=== PATIENT | female | born 1950 | race Caucasian/White ===

== ENCOUNTER 2022-05-16 14:48 | Emergency (ER) | payer OTHER, SELFPAY ==
[2022-05-16] VITALS (18 sets, daily range): BP systolic 162–203; BP diastolic 75–89; PULSE 50–72; RESP 12–20; TEMP 36.9; O2SAT 88–99; BMI 29.7
[2022-05-16] MEDS: ONDANSETRON 4 MG/2 ML INJ IV (15:09)
[2022-05-16] MEDS: diazePAM 10 MG/2 ML SYRINGE 2 MG IV (15:20)
--- NOTE | 2022-05-16 15:29 | PC.NURSE ---
Pt reports hx of menieres disease with onset of dizziness about 3 hours ago. Pt denies chest pain or any other symptoms. Pt took meclazine at 1330 with no improvement. Pt has N&V. Provider aware. Verbal order of 2mg valium IV given by provider. Pt reporting improvement after administration.
--- NOTE | 2022-05-16 16:12 | PC.NURSE ---
Pt desat to 88% on RA. Repositioned pt. Placed by on 1 L NC. Oxygen saturation at 99% on 1L via NC.
--- NOTE | 2022-05-16 16:33 | DI.CT.S_ITS ---
PROCEDURE: CT HEAD/BRAIN WO CON INDICATIONS: dizziness TECHNIQUE: Noncontrast 4.5 mm thick angled axial sections acquired from the foramen magnum to the vertex, with coronal and sagittal reformats. For radiation dose reduction, the following was used: automated exposure control, adjustment of mA and/or kV according to patient size. COMPARISON: None. FINDINGS: Image quality: Excellent. CSF spaces: Basal cisterns are patent. No extra-axial fluid collections. The ventricles are symmetric in size and shape. Brain: No intracranial bleeds or masses. There is cerebral volume loss for age, with resultant ventricular and sulcal prominence. There are periventricular and deep white matter chronic small vessel ischemic changes. There is intracranial internal carotid artery atherosclerosis. Skull and face: Calvarium and visualized facial bones appear intact, without suspicious lesions. Sinuses: Visualized sinuses and mastoids are clear. IMPRESSION: Noncontrast head CT within normal limits for age, without a cause of the patient's presenting history identified. If it would be helpful for clinical management decision making, please consider a dedicated, scheduled brain MRI (without and with contrast, IAC protocol) for further evaluation (assuming that there is no contraindication). Dictated by: Luis Enrique Loya M.D. on 05/16/2022 at 16:22 Approved by: Luis Enrique Loya M.D. on 05/16/2022 at 16:23
--- NOTE | 2022-05-16 16:37 | ED_ITS ---
HPI - Dizziness General Chief Complaint: Dizziness Stated Complaint: have M?ni?re's having a episode Time Seen by Provider: 05/16/22 15:00 History of Present Illness HPI Narrative: 71-year-old female nonsmoker, nondrinker with history of Meniere's and a prior Jason fundoplication presents with gradually worsening dizziness and vertigo over the course of the day. She states that she woke up in her normal state of health and earlier today maybe felt some vague dizziness that gradually worsened and became quite severe. She states that her symptoms are very similar to prior episodes of vertigo that was diagnosed as by ENT in [place] in that her symptoms are worse when she moves, sits up or opens her eyes. She states that bright lights seem to also worsen her symptoms. Over the past month or so she is had decreased ability to hear from her left ear. She denies fever or chills. She is had no runny nose, sore throat or cough. She denies any chest pain or shortness of breath. She states that she had taken meclizine prior to her arrival which often helps but did not seem to do anything today. Otherwise, she denies any dietary change but was relatively recently started on lisinopril. Related Data Home Medications Medication Instructions Recorded Confirmed levothyroxine 13 mcg capsule Unknown ##0 04/14/17 (Tirosint) lisdexamfetamine 10 mg capsule ##0 04/14/17 (Vyvanse) Previous Rx's Medication Instructions Recorded metoclopramide HCl 10 mg tablet 10 mg PO Q8HP PRN #15 tabs 04/14/17 meclizine 25 mg tablet 25 mg PO BID-TID PRN dizziness #14 05/16/22 tabs ondansetron 4 mg disintegrating 4 mg PO TID-QID PRN nausea and 05/16/22 tablet vomiting #10 tabs Allergies Allergy/AdvReac Type Severity Reaction Status Date / Time Estrogens [ESTROGENS] Allergy Severe Rash Verified 05/16/22 18:41 ciprofloxacin [From CIPRO] Allergy Intermediate Verified 05/16/22 18:41 olmesartan [From Benicar] Allergy Intermediate Verified 05/16/22 18:41 losartan AdvReac Intermediate Verified 05/16/22 18:41 NSAIDS (Non-Steroidal AdvReac Intermediate Verified 05/16/22 18:41 Anti-Inflamma tramadol [From Ultram] AdvReac Intermediate Verified 05/16/22 18:41 Review of Systems Review of Systems Narrative: GENERAL: Denies chills, fatigue, malaise, fever, sweats. HEENT: See HPI RESPIRATORY: Denies dyspnea, cough, wheezing, hemoptysis, sputum. CARDIOVASCULAR: Denies chest pain, palpitations, orthopnea, edema, GASTROINTESTINAL: See HPI : Denies dysuria, frequency, incontinence, hematuria, urinary retention. MUSCULOSKELETAL: denies weakness, joint pain, or bony pain SKIN: Denies rash, skin lesions, or other NEUROLOGIC: Denies weakness, headache, numbness, change in speech, confusion, seizures, incoordination. PSYCHIATRIC: No concerning psychosocial issues. 12 point review of systems is negative except for those stated above Exam Narrative Exam Narrative: GENERAL: [71] year old patient appears stated age. Well-developed patient, in mild distress. HEAD: Atraumatic. Normocephalic. EYES: Pupils equal round and reactive. Extraocular motions intact. No scleral icterus. No injection or drainage. ENT: Moist mucous membranes Nose without bleeding, purulent drainage. Throat without erythema, tonsillar hypertrophy or exudate. Airway patent. No obvious reproducible nystagmus, however any motion of her head rapidly worsened symptoms NECK: Trachea midline. Non tender CARDIOVASCULAR: Regular rate and rhythm without murmurs, gallops, or rubs. RESPIRATORY: Clear to auscultation. Breath sounds equal bilaterally. No wheezes, rales, or rhonchi. GASTROINTESTINAL: Abdomen soft, non-tender, nondistended. EXTREMITIES: No edema or joint tenderness. BACK: Nontender without deformity or crepitance. No flank tenderness. NEURO: AOx3. SKIN: No rash or erythema of visible areas NIH Stroke Scale 1a. LOC: Patient is alert and keenly responsive (0) 1b. LOC Questions: Patient answers both LOC questions accurately (0) 1c. LOC Commands: Patient performs both tasks correctly (0) 2. Best Gaze: Normal (0) 3. Visual: No visual loss (0) 4. Facial palsy: Normal symmetrical movements (0) 5. Motor arm: No drift (0) 6. Motor leg: No drift (0) 7. Limb ataxia: Absent (0) 8. Sensory: Normal (0) 9. Best language: No aphasia; normal (0) 10. Dysarthria: Normal (0) 11. Extinction and inattention: No abnormality (0) NIHSS: 0 Initial Vital Signs Initial Vital Signs: Vital Signs Pulse Rate 65 05/16/22 15:01 Pulse Oximetry 99 05/16/22 15:01 Course Orders Ordered: Discontinued Medications Diazepam (Diazepam 10 Mg/2 Ml Syringe) 2 mg IV NOW ONE Stop: 05/16/22 15:15 Last Admin: 05/16/22 15:20 Dose: 2 mg Documented By: FRANKIE Diphenhydramine HCl (Diphenhydramine 50 Mg/Ml Vial) 12.5 mg IV NOW ONE Stop: 05/16/22 17:43 Last Admin: 05/16/22 17:53 Dose: 12.5 mg Documented By: FRANKIE Sodium Chloride (Normal Saline 0.9%) 1,000 mls @ 1,000 mls/hr IV BOLUS ONE Stop: 05/16/22 17:32 Last Infusion: 05/16/22 17:52 Dose: 0 mls/hr Documented By: Admin: 05/16/22 16:42 Dose: 1,000 mls/hr Documented By: FRANKIE Ondansetron HCl (Ondansetron 4 Mg/2 Ml Inj) 4 mg IV NOW ONE Stop: 05/16/22 15:07 Last Admin: 05/16/22 15:09 Dose: 4 mg Documented By: GABRIELLA Ondansetron HCl (Ondansetron 4 Mg Odt Prepack) 1 bottle MISC SEEINSTR ONE Stop: 05/16/22 19:12 Last Admin: 05/16/22 19:32 Dose: 1 bottle Documented By: FRANKIE Vital Signs Vital signs: Vital Signs - 8 hr 05/16/22 15:02 05/16/22 15:01 05/16/22 15:02 Temperature 98.5 F Pulse Rate 65 65 Respiratory Rate 16 Blood Pressure 190/89 H 190/89 H Pulse Oximetry 98 99 Oxygen Delivery Method Room Air Oxygen Flow Rate 05/16/22 15:02 05/16/22 15:27 05/16/22 15:27 Temperature Pulse Rate 62 56 L Respiratory Rate 14 Blood Pressure 189/87 H Pulse Oximetry 99 99 Oxygen Delivery Method Oxygen Flow Rate 05/16/22 15:30 05/16/22 15:31 05/16/22 15:31 Temperature Pulse Rate 55 L 53 L Respiratory Rate 13 Blood Pressure 180/79 H Pulse Oximetry 96 95 Oxygen Delivery Method Oxygen Flow Rate 05/16/22 16:00 05/16/22 16:01 05/16/22 16:01 Temperature Pulse Rate 51 L 51 L Respiratory Rate 18 14 Blood Pressure 168/81 H Pulse Oximetry 95 88 L 99 Oxygen Delivery Method Room Air Nasal Cannula Oxygen Flow Rate 1 MDM - Dizziness Lab Data Result diagrams: 05/16/22 15:08 05/16/22 15:08 Labs: Lab Results 05/16/22 05/16/22 05/16/22 Range/Units 15:08 15:08 15:08 WBC 10.2 (4.5-11.0) X10^3/uL RBC 4.85 (4.0-5.2) X10^6/uL Hgb 14.0 (12.0-16.0) g/dL Hct 41.8 (36-46) % MCV 86.1 (80-100) fL MCH 28.9 (26-34) PG MCHC 33.5 (30-36) % RDW 14.3 (11.6-14.8) % Plt Count 252 (150-400) X10^3/uL Neut % (Auto) 54.6 (50-75) % Lymph % (Auto) 35.7 (25-40) % [place] % (Auto) 7.5 (3-14) % Eos % (Auto) 1.6 L (2-4) % Baso % (Auto) 0.6 (0-2) % Neut # (Auto) 5600 (4197-0405) /uL Lymph # (Auto) 3600 (2033-8627) /uL [place] # (Auto) 800 (0-900) /uL Eos # (Auto) 200 (0-450) /uL Baso # (Auto) 100 (0-100) /uL PT 11.6 (10.1-12.7) SECONDS INR 1.0 (0.9-1.3) APTT 28 (26-36) SECONDS Sodium 140 (137-145) mmol/L Potassium 3.4 (3.4-5.1) mmol/L Chloride 106 (98-107) mmol/L Carbon Dioxide 24 (22-32) mmol/L BUN 15 (7-17) mg/dL Creatinine 0.72 (0.52-1.04) mg/dL Estimated GFR > 60 (>60) mL/min BUN/Creatinine Ratio 20.8 (6-22) Glucose 112 H (80-110) mg/dL Calcium 9.1 (8.4-10.2) mg/dL Total Bilirubin 0.7 (0.2-1.3) mg/dL AST 30 (14-36) IU/L ALT 21 (<35) IU/L Alkaline Phosphatase 96 (38-126) U/L Total Creatine Kinase 112 (30-135) U/L CK-MB (CK-2) 1.16 (<2.37) ng/mL CK-MB (CK-2) Rel Index 1.0 L (1.5-5.0) % Troponin I < 0.012 (0.01-0.034) ng/mL Total Protein 7.2 (6.3-8.2) g/dL Albumin 4.1 (3.5-5.0) g/dL Globulin 3.1 (1.7-4.1) g/dL Albumin/Globulin Ratio 1.3 (1.0-2.8) TSH (0.47-4.68) uIU/mL Urine Color Urine Appearance Urine pH (4.5-8.0) Ur Specific [place] (1.000-1.035) Urine Protein (Negative) Urine Glucose (UA) (Negative) g/dL Urine Ketones (NEGATIVE) Urine Occult Blood (Negative) Urine Nitrate (Negative) Urine Bilirubin (NEGATIVE) Urine Urobilinogen (0.2) E.U./dL Ur Leukocyte Esterase (NEGATIVE) Urine RBC (0-5/HPF) Urine WBC (0-5/HPF) Ur Squamous Epith Cells (0-5/HPF) Amorphous Sediment Urine Bacteria (None) Ur Culture Indicated? U Opiates 300ng/mL cut (Negative) Ur Oxycodone Screen (Negative) Urine Methadone Screen (Negative) Ur Barbiturates Screen (Negative) U Tricyclic Antidepress (Negative) Ur Phencyclidine Scrn (Negative) Ur Amphetamines Screen (Negative) U Methamphetamines Scrn (Negative) Ur MDMA Scrn (Ecstasy) (Negative) U Benzodiazepines Scrn (Negative) Urine Cocaine Screen (Negative) U Marijuana (THC) Screen (Negative) Ethyl Alcohol < 10 ( - 10) mg/dL SARS-CoV-2 (PCR) (Negative) 05/16/22 05/16/22 05/16/22 Range/Units 15:08 17:15 19:00 WBC (4.5-11.0) X10^3/uL RBC (4.0-5.2) X10^6/uL Hgb (12.0-16.0) g/dL Hct (36-46) % MCV (80-100) fL MCH (26-34) PG MCHC (30-36) % RDW (11.6-14.8) % Plt Count (150-400) X10^3/uL Neut % (Auto) (50-75) % Lymph % (Auto) (25-40) % [place] % (Auto) (3-14) % Eos % (Auto) (2-4) % Baso % (Auto) (0-2) % Neut # (Auto) (2455-0576) /uL Lymph # (Auto) (4301-6771) /uL [place] # (Auto) (0-900) /uL Eos # (Auto) (0-450) /uL Baso # (Auto) (0-100) /uL PT (10.1-12.7) SECONDS INR (0.9-1.3) APTT (26-36) SECONDS Sodium (137-145) mmol/L Potassium (3.4-5.1) mmol/L Chloride (98-107) mmol/L Carbon Dioxide (22-32) mmol/L BUN (7-17) mg/dL Creatinine (0.52-1.04) mg/dL Estimated GFR (>60) mL/min BUN/Creatinine Ratio (6-22) Glucose (80-110) mg/dL Calcium (8.4-10.2) mg/dL Total Bilirubin (0.2-1.3) mg/dL AST (14-36) IU/L ALT (<35) IU/L Alkaline Phosphatase (38-126) U/L Total Creatine Kinase (30-135) U/L CK-MB (CK-2) (<2.37) ng/mL CK-MB (CK-2) Rel Index (1.5-5.0) % Troponin I (0.01-0.034) ng/mL Total Protein (6.3-8.2) g/dL Albumin (3.5-5.0) g/dL Globulin (1.7-4.1) g/dL Albumin/Globulin Ratio (1.0-2.8) TSH 2.54 (0.47-4.68) uIU/mL Urine Color Urine Appearance Urine pH (4.5-8.0) Ur Specific [place] (1.000-1.035) Urine Protein (Negative) Urine Glucose (UA) (Negative) g/dL Urine Ketones (NEGATIVE) Urine Occult Blood (Negative) Urine Nitrate (Negative) Urine Bilirubin (NEGATIVE) Urine Urobilinogen (0.2) E.U./dL Ur Leukocyte Esterase (NEGATIVE) Urine RBC (0-5/HPF) Urine WBC (0-5/HPF) Ur Squamous Epith Cells (0-5/HPF) Amorphous Sediment Urine Bacteria (None) Ur Culture Indicated? U Opiates 300ng/mL cut Negative (Negative) Ur Oxycodone Screen Negative (Negative) Urine Methadone Screen Negative (Negative) Ur Barbiturates Screen Negative (Negative) U Tricyclic Antidepress Negative (Negative) Ur Phencyclidine Scrn Negative (Negative) Ur Amphetamines Screen Negative (Negative) U Methamphetamines Scrn Negative (Negative) Ur MDMA Scrn (Ecstasy) Negative (Negative) U Benzodiazepines Scrn Negative (Negative) Urine Cocaine Screen Negative (Negative) U Marijuana (THC) Screen Negative (Negative) Ethyl Alcohol ( - 10) mg/dL SARS-CoV-2 (PCR) Negative (Negative) 05/16/22 Range/Units 19:00 WBC (4.5-11.0) X10^3/uL RBC (4.0-5.2) X10^6/uL Hgb (12.0-16.0) g/dL Hct (36-46) % MCV (80-100) fL MCH (26-34) PG MCHC (30-36) % RDW (11.6-14.8) % Plt Count (150-400) X10^3/uL Neut % (Auto) (50-75) % Lymph % (Auto) (25-40) % [place] % (Auto) (3-14) % Eos % (Auto) (2-4) % Baso % (Auto) (0-2) % Neut # (Auto) (9912-5219) /uL Lymph # (Auto) (8693-3791) /uL [place] # (Auto) (0-900) /uL Eos # (Auto) (0-450) /uL Baso # (Auto) (0-100) /uL PT (10.1-12.7) SECONDS INR (0.9-1.3) APTT (26-36) SECONDS Sodium (137-145) mmol/L Potassium (3.4-5.1) mmol/L Chloride (98-107) mmol/L Carbon Dioxide (22-32) mmol/L BUN (7-17) mg/dL Creatinine (0.52-1.04) mg/dL Estimated GFR (>60) mL/min BUN/Creatinine Ratio (6-22) Glucose (80-110) mg/dL Calcium (8.4-10.2) mg/dL Total Bilirubin (0.2-1.3) mg/dL AST (14-36) IU/L ALT (<35) IU/L Alkaline Phosphatase (38-126) U/L Total Creatine Kinase (30-135) U/L CK-MB (CK-2) (<2.37) ng/mL CK-MB (CK-2) Rel Index (1.5-5.0) % Troponin I (0.01-0.034) ng/mL Total Protein (6.3-8.2) g/dL Albumin (3.5-5.0) g/dL Globulin (1.7-4.1) g/dL Albumin/Globulin Ratio (1.0-2.8) TSH (0.47-4.68) uIU/mL Urine Color Yellow Urine Appearance Clear Urine pH 7.5 (4.5-8.0) Ur Specific [place] 1.010 (1.000-1.035) Urine Protein Negative (Negative) Urine Glucose (UA) Negative (Negative) g/dL Urine Ketones Trace H (NEGATIVE) Urine Occult Blood Negative (Negative) Urine Nitrate Negative (Negative) Urine Bilirubin Negative (NEGATIVE) Urine Urobilinogen 0.2 (0.2) E.U./dL Ur Leukocyte Esterase Trace H (NEGATIVE) Urine RBC None seen (0-5/HPF) Urine WBC 1-5/hpf (0-5/HPF) Ur Squamous Epith Cells 1-5 /hpf (0-5/HPF) Amorphous Sediment 1+ Urine Bacteria Occasional (0-1) (None) Ur Culture Indicated? Specimen cultured U Opiates 300ng/mL cut (Negative) Ur Oxycodone Screen (Negative) Urine Methadone Screen (Negative) Ur Barbiturates Screen (Negative) U Tricyclic Antidepress (Negative) Ur Phencyclidine Scrn (Negative) Ur Amphetamines Screen (Negative) U Methamphetamines Scrn (Negative) Ur MDMA Scrn (Ecstasy) (Negative) U Benzodiazepines Scrn (Negative) Urine Cocaine Screen (Negative) U Marijuana (THC) Screen (Negative) Ethyl Alcohol ( - 10) mg/dL SARS-CoV-2 (PCR) (Negative) Point of Care Testing Glucose POC 112 Urine Dip Bedside Urine Glucose Negative Bedside Urine Bilirubin - Negative Bedside Urine Ketone - Negative Urine Specific [place] 1.010 Bedside Urine Occult Blood - Negative Bedside Urine pH 7.5 Bedside Urine Protein - Negative Bedside Urine Urobilinogen - Negative Bedside Urine Nitrite - Negative Bedside Urine Leukocytes - Negative Esterase Imaging Data CT scan - head: Radiologist's Impression: [address] [id number] ReportSigned Patient: Aldair Wei MMR#: [id number]: 9Acct:[id number]/Sex: 64 / MDate of Service: 05/17/22Loc: EDAccession Number: [id number] Procedure: XR chest 1V Ordering Provider: Shaw Reynoso D.O. PROCEDURE: XR CHEST 1V INDICATIONS: chest pain TECHNIQUE: One view of the chest was acquired. COMPARISON: [facility] , XR CHEST 1V, 05/04/2018, 18:54. FINDINGS: Surgical changes and devices: None. Lungs and pleura: Lungs are clear. No pleural effusions or pneumothorax. Mediastinum: Mediastinal contours appear normal. Heart size is mildly enlarged. Bones and chest wall: No suspicious bony lesions. Overlying soft tissues a ppear unremarkable. IMPRESSION: No acute pulmonary process. Dictated by: Dariela Singh M.D. on 05/17/2022 at 23:51 Approved by: Dariela Singh M.D. on 05/17/2022 at 23:51 CTA - brain/neck: Radiologist's Impression: ? Chart Viewer Diagnostics Subcategory All Activity ??:?? All Time ??:?? All Subcategories Filter Laboratory Imaging Microbiology Pathology Blood Bank Tests Cardiovascular Other Specialty DATE TYPE STATUS REF RANGE/AUTHOR Hx 05/16/22 17:42 Head/Neck CTA Signed Derik Llanos 05/16/22 16:[address] Signed Luis Enrique Loya Lisa L ED 71, F?1950 MRN#? [id number] DEP ER,?Main ED??? 170.18cm 86.183kg BMI: 29.8kg/m? Dizziness Acc#? [id number] Resus Status Not Ordered No Hx Avail Special Indicators No Data to Display Home Meds Not Confirmed Prescription Monitoring Program MEDICATIONS (INSTRUCTIONS) LAST TAKEN Active ??levothyroxine [Tirosint] ??Unknown##0 ??lisdexamfetamine [Vyvanse] ??##0 meclizine 25 mgPOBID-TIDPRNdizziness#14 tabs ??metoclopramide HCl ??10 [id number]#15 tabs ondansetron 4 mgPOTID-QIDPRNnausea and vomiting#10 tabs Allergies Estrogens (ESTROGENS) Rash ciprofloxacin (From CIPRO) olmesartan (From Benicar) losartan NSAIDS (Non-Steroidal Anti-Inflamma tramadol (From Ultram) Problems ? ONSET Peripheral vertigo Abdominal pain Vital Signs 05/16/22 19:08 BP 162/75?H Pulse 66? Resp 20? O2 Sat 97? Diagnostics Reports Amada Montenegro??71??F??1950 ? Allergy/Adv: Estrogens, ciprofloxacin, olmesartan, losartan, NSAIDS (Non-St eroidal Anti-Inflamma, tramadol (More??) Close Head/Neck CTA (Signed) Derik Llanos - 05/16/[address] (Signed) Luis Enrique Loya - 05/16/22 [place] [address] CT Scan Report Signed Patient: Amada Montenegro MR#: [id number] : 1950 Acct:[id number] Age/Sex: 71 / F Date of Service: 05/16/22 Loc: ED Accession Number: [id number] ?? Procedure: CT angio head and neck Ordering Provider: Shaw Reynoso D.O. PROCEDURE:? CT ANGIO HEAD AND NECK ? INDICATIONS:? severe dizziness, ataxia ? TECHNIQUE:? Pre-contrast 4.5 mm thick sections acquired from the foramen magnum to the vertex.? After the administration of intravenous contrast, 1 mm thick sections acquired from the aortic arch through the [place] of [place].? Post-contrast 4.5 mm thick sections then re- acquired from the foramen magnum to the vertex.? 3-dimensional ojvtipl-flyyidjrj-hevwtxacpk (MIP) and/or volume rendering reformats were acquired of the central intracranial vasculature and neck separately. For radiation dose reduction, the following was used:? automated exposure control, adjustment of mA and/or kV according to patient size.? ? COMPARISON:? None. ? FINDINGS:? Image quality:? Excellent.? ? BRAIN:? CSF spaces:? Ventricles are normal in size and shape.? Basal cisterns are patent.? No extra-axial fluid collections.? ? Brain:? No midline shift.? No intracranial bleeds or masses.? Murry-white matter interface appears intact.? ? Skull and face:? Calvarium and facial bones appear intact, without suspicious lesions.? Orbits appear normal.? ? Sinuses:? Sinuses and mastoids are clear.? ? HEAD CT ANGIOGRAPHY:? Anterior circulation:? Intracranial internal carotid arteries are normal in size and flow.? The flow within the paired anterior cerebral arteries is normal and symmetric.? The flow within the middle cerebral arteries is normal and symmetric.? The anterior communicating artery is seen.? No aneurysms are seen.? ? Posterior circulation:? Visualized portions of the vertebral arteries demonstrate normal caliber, and join to form a normal appearing basilar artery.? Flow within the posterior cerebral arteries is normal and symmetric.? No aneurysms are seen.? ? NECK CT ANGIOGRAPHY:? Carotid system:? The great vessels demonstrate a conventional anatomy as they arise from the aortic arch.? The origins of the common carotid arteries appear patent.? The common carotid arteries demonstrate normal caliber and courses.? The bifurcation regions are both widely patent.? The internal carotid arteries demonstrate normal calibers and courses.? ? Posterior circulation:? The origins of the vertebral arteries both appear widely patent.? The more superior extracranial portions of both vertebral arteries also demonstrate normal courses and calibers.? They join to form a normal appearing basilar artery.? ? Soft tissues:? Visualized neck soft tissues demonstrate no suspicious abnormalities.? ? Bones:? No suspicious bony lesions.? Visualized cervical spine appears normally aligned.? IMPRESSION:? ? 1. No evidence acute intracranial abnormality ? 2. Unremarkable CTA head.? No stenosis, aneurysm, occlusion, or focal filling defect. ? 3. Widely patent carotids.? No carotid dissection or vertebral artery dissection.? Widely patent vertebral arteries and basilar artery.? ? Any quantitative measurements of stenosis were performed using NASCET criteria.? ? ? Dictated by: Derik Llanos M.D. on 05/16/2022 at 18:43 ? ? Approved by: Derik Llanos M.D. on 05/16/2022 at 18:47? MDM Narrative Medical decision making narrative: [71-year-old female with history of vertigo that tends to be triggered by caffeine presents with her in the chief complaint of dizziness] Multiple etiologies for patient's symptoms considered including, but not limited to: [Peripheral vertigo such as BPPV or Meniere's Disease, electrolyte abnormality, cardiac ischemia, stroke versus other] Labs reviewed and interpreted by myself: No anemia, electrolyte disturbance, abnormal troponin or other significant abnormality Imaging reviewed: CT and CTA of the head and neck are unremarkable and absent of any obvious stroke, bleeding, dissection or other Patient's symptoms improved over duration of stay with above-stated therapies. Patient able to ambulate through the department, tolerate liquids Findings and discharge diagnosis discussed with patient/family followed by verbalization of understanding Return precautions discussed with patient/family whom verbalize understanding of diagnosis and plan Discharge Plan Departure Patient Disposition: Home Clinical Impression: Peripheral vertigo Instructions: DI for Vertigo Activity Restrictions/Additional Instructions: *You have been diagnosed with [vertigo. As we discussed your history and physical exam as well as response to therapies are reassuring. Your labs and imaging demonstrate no evidence of stroke, bleeding, mass or other significant abnormal finding] *What to do: *Please continue to take your regular medications as directed. [ ] New medication prescriptions sent to your pharmacy: [ ] [ x] New medication written as a paper prescription [ ] No new medications given *Please follow up with your primary care provider in 2-3 days, call for an appointment. Let them know you were seen in the Emergency Department and that we ask that you be seen in follow up. We will electronically transmit a record of today's note if your PCP is in our system *Return to Emergency Department if you should have any new, worsening or concerning symptoms, such as [fever greater than 101 F, shaking chills, worsening pain, persistent vomiting or other bothersome symptoms] Prescriptions: New meclizine 25 mg tablet 25 mg PO BID-TID PRN (Reason: dizziness) Qty: 14 0RF ondansetron 4 mg tablet,disintegrating 4 mg PO TID-QID PRN (Reason: nausea and vomiting) Qty: 10 0RF No Action levothyroxine [Tirosint] 13 MCG capsule Unknown Qty: 0 lisdexamfetamine [Vyvanse] 10 mg capsule Qty: 0 metoclopramide HCl 10 MG tablet 10 mg PO Q8HP PRNQty: 15 0RF Referrals: Miscellaneous,Doctor, MD [Primary Care Provider] - Visit Report Forms: Patient Portal/API
[2022-05-16] MEDS: SODIUM CHLORIDE 0.9% 1,000 ML 1000 ML IV (16:42)
[2022-05-16 17:03] LABS: Add Manual Diff / Slide Review NO; Basophils Absolute Auto 100 /uL (0-100); Basophils Percent Auto 0.6 % (0-2); Eosinophils Absolute Auto 200 /uL (0-450); Eosinophils Percent Auto 1.6 % (2-4); Hematocrit 41.8 % (36-46); Lymphocytes Absolute Auto 3600 /uL (1100-4500); Lymphocytes Percent Auto 35.7 % (25-40); Mean Corpuscular HGB Conc 33.5 % (30-36); Mean Corpuscular Hemoglobin 28.9 PG (26-34); Mean Corpuscular Volume 86.1 fL (80-100); Monocytes Absolute Auto 800 /uL (0-900); Monocytes Percent Auto 7.5 % (3-14); Neutrophils Absolute Auto 5600 /uL (1500-7000); Neutrophils Percent Auto 54.6 % (50-75); Platelet Count 252 X10^3/uL (150-400); Red Blood Cell Count 4.85 X10^6/uL (4.0-5.2); Red Cell Distribution Width 14.3 % (11.6-14.8); White Blood Cell Count 10.2 X10^3/uL (4.5-11.0)
[2022-05-16 17:05] LABS: Prothrombin Time 11.6 SECONDS (10.1-12.7)
[2022-05-16 17:08] LABS: PTT Partial Thromboplastin Tim 28 SECONDS (26-36)
[2022-05-16 17:12] LABS: Alanine Aminotransferase 21 IU/L (<35); Albumin 4.1 g/dL (3.5-5.0); Albumin Globulin Ratio 1.3 (1.0-2.8); Alkaline Phosphatase 96 U/L (38-126); Aspartate Aminotransferase 30 IU/L (14-36); BUN Creatinine Ratio 20.8 (6-22); Bilirubin Total 0.7 mg/dL (0.2-1.3); Blood Urea Nitrogen 15 mg/dL (7-17); Calcium 9.1 mg/dL (8.4-10.2); Carbon Dioxide 24 mmol/L (22-32); Chloride 106 mmol/L (98-107); Creatine Kinase 112 U/L (30-135); Estimated Glomerular Filt Rate > 60 mL/min (>60); Ethanol (ETOH) < 10 mg/dL; Globulin 3.1 g/dL (1.7-4.1); Glucose 112 mg/dL (80-110); HEMOLYSIS < 15 (0-50); Potassium 3.4 mmol/L (3.4-5.1); Sodium 140 mmol/L (137-145); Total Protein 7.2 g/dL (6.3-8.2)
[2022-05-16 17:23] LABS: Troponin I < 0.012 ng/mL (0.01-0.034)
[2022-05-16 17:27] LABS: Creatine Kinase MB 1.16 ng/mL (<2.37)
[2022-05-16 17:42] LABS: TSH w/ Reflex to FT4 2.54 uIU/mL (0.47-4.68)
--- NOTE | 2022-05-16 17:42 | DI.CT.S_ITS ---
PROCEDURE: CT ANGIO HEAD AND NECK INDICATIONS: severe dizziness, ataxia TECHNIQUE: Pre-contrast 4.5 mm thick sections acquired from the foramen magnum to the vertex. After the administration of intravenous contrast, 1 mm thick sections acquired from the aortic arch through the [place]. Post-contrast 4.5 mm thick sections then re-acquired from the foramen magnum to the vertex. 3-dimensional clwqwzp-lkrwiwpik-hsqwhcgjxc (MIP) and/or volume rendering reformats were acquired of the central intracranial vasculature and neck separately. For radiation dose reduction, the following was used: automated exposure control, adjustment of mA and/or kV according to patient size. COMPARISON: None. FINDINGS: Image quality: Excellent. BRAIN: CSF spaces: Ventricles are normal in size and shape. Basal cisterns are patent. No extra-axial fluid collections. Brain: No midline shift. No intracranial bleeds or masses. Murry-white matter interface appears intact. Skull and face: Calvarium and facial bones appear intact, without suspicious lesions. Orbits appear normal. Sinuses: Sinuses and mastoids are clear. HEAD CT ANGIOGRAPHY: Anterior circulation: Intracranial internal carotid arteries are normal in size and flow. The flow within the paired anterior cerebral arteries is normal and symmetric. The flow within the middle cerebral arteries is normal and symmetric. The anterior communicating artery is seen. No aneurysms are seen. Posterior circulation: Visualized portions of the vertebral arteries demonstrate normal caliber, and join to form a normal appearing basilar artery. Flow within the posterior cerebral arteries is normal and symmetric. No aneurysms are seen. NECK CT ANGIOGRAPHY: Carotid system: The great vessels demonstrate a conventional anatomy as they arise from the aortic arch. The origins of the common carotid arteries appear patent. The common carotid arteries demonstrate normal caliber and courses. The bifurcation regions are both widely patent. The internal carotid arteries demonstrate normal calibers and courses. Posterior circulation: The origins of the vertebral arteries both appear widely patent. The more superior extracranial portions of both vertebral arteries also demonstrate normal courses and calibers. They join to form a normal appearing basilar artery. Soft tissues: Visualized neck soft tissues demonstrate no suspicious abnormalities. Bones: No suspicious bony lesions. Visualized cervical spine appears normally aligned. IMPRESSION: 1. No evidence acute intracranial abnormality 2. Unremarkable CTA head. No stenosis, aneurysm, occlusion, or focal filling defect. 3. Widely patent carotids. No carotid dissection or vertebral artery dissection. Widely patent vertebral arteries and basilar artery. Any quantitative measurements of stenosis were performed using NASCET criteria. Dictated by: Derik Llanos M.D. on 05/16/2022 at 18:43 Approved by: Derik Llanos M.D. on 05/16/2022 at 18:47
[2022-05-16] MEDS: diphenhydrAMINE 50 MG/ML VIAL 12.5 MG IV (17:53)
[2022-05-16 18:02] LABS: COVID19 -Nasal RAPID Negative (Negative)
--- NOTE | 2022-05-16 19:12 | PC.NURSE ---
Pt ambulated per provider request. Pt walked up and down ER hallways. Pt reports doing so much better and mild dizziness. Pt is steady on feet. Provider aware.
[2022-05-16 19:19] LABS: Appearance Urine UA CLEAR; Bilirubin Urine UA NEGATIVE (NEGATIVE); Color Urine UA YELLOW; Glucose Urine UA NEGATIVE (Negative); Ketones Urine UA TRACE (NEGATIVE); Leukocyte Esterase Urine UA TRACE (NEGATIVE); Nitrite Urine UA NEGATIVE (Negative); Occult Blood Urine UA NEGATIVE (Negative); Protein Urine UA NEGATIVE (Negative); Urobilinogen Urine UA 0.2 E.U./dL (0.2)
[2022-05-16 19:26] LABS: Amorphous Sediment Urine 1+; Bacteria Urine Occasional (0-1); Culture Indicated Urine Specimen Cultured; RBC Urine None Seen (0-5/HPF); Squamous Epithelial Cell Urine 1-5 /HPF (0-5/HPF); WBC Urine 1-5/HPF (0-5/HPF); pH Urine UA 7.5 (4.5-8.0)
[2022-05-16 19:28] LABS: UR Morphine/Opiate cutoff 300 Negative (Negative); Ur Creatinine Normal (Normal); Ur Specific Gravity Normal (Normal); Urine Amphetamines Negative (Negative); Urine Barbiturates Negative (Negative); Urine Benzodiazepines Negative (Negative); Urine Cocaine Negative (Negative); Urine MDMA Negative (Negative); Urine Methadone Negative (Negative); Urine Methamphetamines Negative (Negative); Urine Oxycodone Negative (Negative); Urine Phencyclidine Negative (Negative); Urine Tetrahydrocannabinol Negative (Negative); Urine Tricyclic Antidepressant Negative (Negative); Urine pH Normal (Normal)
[2022-05-16] MEDS: ONDANSETRON 4 MG ODT PREPACK 1 BOTTLE MISC (19:32)
== END 2022-05-16 19:35 | disposition home or self-care (01) ==
PROVIDERS: Emergency Provider Emergency Medicine
DX: H81.399 Other peripheral vertigo, unspecified ear (principal); Z20.822 Contact with and (suspected) exposure to COVID-19
CPT/HCPCS: 36415; 70450; 70496; 70498; 80053; 80305; 80320; 81001; 81003; 82550; 82553; 82962; 84443; 84484; 85025; 85610; 85730; 87086; 87635; 93005; 96361; 96374; 96375; 99284; 99285; C9803; J1200; J2405; J3360; Q9967

== ENCOUNTER 2023-11-04 09:43 | Emergency (ER) | payer OTHER, SELFPAY ==
[2023-11-04] VITALS (13 sets, daily range): BP systolic 172–208; BP diastolic 84–105; PULSE 52–80; RESP 12–20; TEMP 36.2–36.4; O2SAT 94–100; BMI 29.0
--- NOTE | 2023-11-04 09:52 | DI.RAD.S_ITS ---
PROCEDURE: XR CHEST 1V INDICATIONS: chest pain TECHNIQUE: One view of the chest was acquired. COMPARISON: None. FINDINGS: Surgical changes and devices: None. Lungs and pleura: Lungs are clear. No pleural effusions or pneumothorax. Mediastinum: Mediastinal contours appear normal. Heart size is normal. Bones and chest wall: No suspicious bony lesions. Overlying soft tissues appear unremarkable. IMPRESSION: No acute cardiopulmonary abnormality is seen. Dictated by: Johny Anderson M.D. on 11/04/2023 at 10:23 Approved by: Johny Anderson M.D. on 11/04/2023 at 10:24
--- NOTE | 2023-11-04 09:52 | EKG_ITS ---
[address] [address] Test Date: 2023-11-04 Pat Name: Amada Montenegro Department: [facility] Room: Gender: Female [employer]ishing [employer] Operator: SHANE : 1950 Requested By: Order Number: [id number] Reading MD: Junior Tamayo MD Measurements Intervals [place] Rate: 54 P: 18 CO: 172 QRS: 19 QRSD: 86 T: 10 QT: 420 QTc: 398 Interpretive Statements Sinus bradycardia Low voltage QRS Electronically Signed On 11-04-2023 11:49:07 PDT by Junior Tamayo MD
[2023-11-04] MEDS: ONDANSETRON 4 MG/2 ML INJ IV (10:10)
[2023-11-04] MEDS: SODIUM CHLORIDE 0.9% 1,000 ML 1000 ML IV (10:11)
[2023-11-04 10:25] LABS: Add Manual Diff / Slide Review NO; Basophils Absolute Auto 100 /uL (0-100); Basophils Percent Auto 1.3 % (0-2); Eosinophils Absolute Auto 200 /uL (0-450); Eosinophils Percent Auto 1.5 % (2-4); Hematocrit 38.6 % (36-46); Hemoglobin 13.2 g/dL (12.0-16.0); Lymphocytes Absolute Auto 2700 /uL (1100-4500); Lymphocytes Percent Auto 24.1 % (25-40); Mean Corpuscular HGB Conc 34.1 % (30-36); Mean Corpuscular Hemoglobin 29.4 PG (26-34); Mean Corpuscular Volume 86.1 fL (80-100); Monocytes Absolute Auto 600 /uL (0-900); Monocytes Percent Auto 5.7 % (3-14); Neutrophils Absolute Auto 7400 /uL (1500-7000); Neutrophils Percent Auto 67.4 % (50-75); Platelet Count 288 X10^3/uL (150-400); Red Blood Cell Count 4.49 X10^6/uL (4.0-5.2); Red Cell Distribution Width 13.7 % (11.6-14.8)
--- NOTE | 2023-11-04 10:28 | ED_ITS ---
HPI - Dizziness General Chief Complaint: Dizziness Stated Complaint: Dizzy Time Seen by Provider: 11/04/23 09:53 Source: patient Mode of arrival: Wheelchair History of Present Illness HPI Narrative: 73-year-old female with history of Meniere's disease presents by private vehicle from home for vertigo. Patient states that this feels exactly like a Meniere's flare-up and she thinks it was caused by the drink she had today from [employer], which she thinks may have had caffeine in it. Patient is in town visiting from [place] in order to help her [id number], who is on hospice care for terminal melanoma. Because she is coming from out of town she is down to her last tablet of meclizine and Zofran. Related Data Home Medications Medication Instructions Recorded Confirmed levothyroxine 13 mcg capsule Unknown ##0 04/14/17 (Tirosint) lisdexamfetamine 10 mg capsule ##0 04/14/17 (Vyvanse) Previous Rx's Medication Instructions Recorded metoclopramide HCl 10 mg tablet 10 mg PO Q8HP PRN #15 tabs 04/14/17 meclizine 25 mg tablet 25 mg PO BID-TID PRN dizziness #14 05/16/22 tabs ondansetron 4 mg disintegrating 4 mg PO TID-QID PRN nausea and 05/16/22 tablet vomiting #10 tabs meclizine 25 mg tablet 25 mg PO TID #30 tabs 11/04/23 ondansetron 4 mg disintegrating 4 mg PO Q8H PRN nausea and 11/04/23 tablet vomiting #30 tabs Allergies Allergy/AdvReac Type Severity Reaction Status Date / Time Estrogens [ESTROGENS] Allergy Severe Rash Verified 11/04/23 10:00 ciprofloxacin [From CIPRO] Allergy Intermediate Verified 11/04/23 10:00 olmesartan [From Benicar] Allergy Intermediate Verified 11/04/23 10:00 losartan AdvReac Intermediate Verified 11/04/23 10:00 NSAIDS (Non-Steroidal AdvReac Intermediate Verified 11/04/23 10:00 Anti-Inflamma tramadol [From Ultram] AdvReac Intermediate Verified 11/04/23 10:00 Patient History Social History Smoking Status: Unknown if ever smoked Smoking Status: Unknown if ever smoked alcohol intake frequency: holidays/special occasions only Substance Use Type: does not use Exam Initial Vital Signs Initial Vital Signs: Vital Signs Temperature 97.2 F L 11/04/23 09:55 Pulse Rate 80 11/04/23 09:55 Respiratory Rate 15 11/04/23 09:55 Blood Pressure 183/105 H 11/04/23 09:55 Pulse Oximetry 97 11/04/23 09:55 Oxygen Delivery Method Room Air 11/04/23 09:55 Const: Awake, alert, no acute distress, nontoxic appearing HEENT: Eyes normal, TM normal bilaterally Cardiac: regular rate, regular rhythm RESP: unlabored, clear bilaterally, no wheezing Skin: Warm, Dry, intact, no rashes Neuro: AO x3, CN II-XII grossly intact, moves all extremities, ambulatory without ataxia Course Orders Ordered: Discontinued Medications Diazepam (Diazepam 10 Mg/2 Ml Syringe) 2 mg IV NOW ONE Stop: 11/04/23 10:27 Last Admin: 11/04/23 10:36 Dose: 2 mg Documented By: GREGOR Diphenhydramine HCl (Diphenhydramine 50 Mg/Ml Vial) 50 mg IV NOW ONE Stop: 11/04/23 12:26 Last Admin: 11/04/23 12:32 Dose: 50 mg Documented By: GREGOR Sodium Chloride (Normal Saline 0.9%) 1,000 mls @ 1,000 mls/hr IV BOLUS ONE Stop: 11/04/23 10:58 Last Infusion: 11/04/23 11:20 Dose: Infused Documented By: Admin: 11/04/23 10:11 Dose: 1,000 mls/hr Documented By: GREGOR Meclizine HCl (Meclizine Hcl 12.5 Mg Tablet) 50 mg PO NOW ONE Stop: 11/04/23 10:50 Last Admin: 11/04/23 12:48 Dose: Not Given Documented By: GABRIELLA Meclizine HCl (Meclizine Hcl 12.5 Mg Tablet) 50 mg PO NOW ONE Stop: 11/04/23 12:48 Last Admin: 11/04/23 12:55 Dose: 50 mg Documented By: GREGOR Ondansetron HCl (Ondansetron 4 Mg/2 Ml Inj) 4 mg IV NOW ONE Stop: 11/04/23 10:00 Last Admin: 11/04/23 10:10 Dose: 4 mg Documented By: GREGOR Scopolamine (Scopolamine 1 Patch) 1 patch TOP NOW ONE Stop: 11/04/23 11:47 Last Admin: 11/04/23 12:09 Dose: 1 patch Documented By: GREGOR Vital Signs Vital signs: Vital Signs - 8 hr 11/04/23 09:55 11/04/23 09:57 11/04/23 09:57 Temperature 97.2 F L Pulse Rate 80 72 Respiratory Rate 15 Blood Pressure 183/105 H 183/105 H Pulse Oximetry 97 98 Oxygen Delivery Method Room Air 11/04/23 10:00 11/04/23 10:30 11/04/23 11:00 Temperature Pulse Rate 58 L 55 L 58 L Respiratory Rate 20 Blood Pressure Pulse Oximetry 99 100 Oxygen Delivery Method 11/04/23 11:30 11/04/23 12:00 11/04/23 12:24 Temperature Pulse Rate 53 L 63 Respiratory Rate Blood Pressure 208/94 H Pulse Oximetry 99 98 Oxygen Delivery Method 11/04/23 12:24 11/04/23 12:30 11/04/23 12:30 Temperature Pulse Rate 61 54 L Respiratory Rate 12 13 Blood Pressure 175/84 H Pulse Oximetry 100 98 Oxygen Delivery Method 11/04/23 13:00 11/04/23 13:01 11/04/23 13:01 Temperature Pulse Rate 55 L 56 L Respiratory Rate 17 Blood Pressure 189/88 H Pulse Oximetry 100 99 Oxygen Delivery Method 11/04/23 13:30 11/04/23 13:30 Temperature Pulse Rate 54 L Respiratory Rate 16 Blood Pressure 181/85 H Pulse Oximetry 95 Oxygen Delivery Method MDM - Dizziness Differential Diagnosis Differential diagnosis: Likely adverse reaction to drug, benign paroxysmal positional vertigo and orthostatic hypotension Lab Data 11/04/23 10:07 11/04/23 10:07 Labs: Lab Results 11/04/23 Range/Units 10:07 WBC 11.0 (4.5-11.0) X10^3/uL RBC 4.49 (4.0-5.2) X10^6/uL Hgb 13.2 (12.0-16.0) g/dL Hct 38.6 (36-46) % MCV 86.1 (80-100) fL MCH 29.4 (26-34) PG MCHC 34.1 (30-36) % RDW 13.7 (11.6-14.8) % Plt Count 288 (150-400) X10^3/uL Neut % (Auto) 67.4 (50-75) % Lymph % (Auto) 24.1 L (25-40) % [place] % (Auto) 5.7 (3-14) % Eos % (Auto) 1.5 L (2-4) % Baso % (Auto) 1.3 (0-2) % Neut # (Auto) 7400 H (6063-5692) /uL Lymph # (Auto) 2700 (4457-8439) /uL [place] # (Auto) 600 (0-900) /uL Eos # (Auto) 200 (0-450) /uL Baso # (Auto) 100 (0-100) /uL PT 11.1 (9.4-12.5) SECONDS INR 1.0 (0.9-1.3) APTT 36 (25.1-36.5) SECONDS Sodium 139 (137-145) mmol/L Potassium 4.0 (3.4-5.1) mmol/L Chloride 109 H (98-107) mmol/L Carbon Dioxide 27 (22-32) mmol/L BUN 16 (7-17) mg/dL Creatinine 0.73 (0.52-1.04) mg/dL Estimated GFR > 60 (>60) mL/min BUN/Creatinine Ratio 21.9 (6-22) Glucose 99 (80-110) mg/dL Calcium 9.2 (8.4-10.2) mg/dL Magnesium 2.4 H (1.6-2.3) mg/dL Total Bilirubin 0.4 (0.2-1.3) mg/dL AST 23 (14-36) IU/L ALT 17 (<35) IU/L Alkaline Phosphatase 82 (38-126) U/L Total Creatine Kinase 74 (30-135) U/L Troponin I < 0.012 (0.01-0.034) ng/mL Total Protein 6.8 (6.3-8.2) g/dL Albumin 4.0 (3.5-5.0) g/dL Globulin 2.8 (1.7-4.1) g/dL Albumin/Globulin Ratio 1.4 (1.0-2.8) Lipase 61 (23-300) U/L MDM Narrative Medical decision making narrative: Dizziness similar to Meniere's flare-up. Patient states that the same thing happened to her the last time she visited [facility] and she underwent ?a bunch of CT scans? that were reportedly normal. She states she was not want any of these tests done today, she was simply wants medications to help her vertigo improved. Patient received multiple rounds of IV medications for vertigo. She states that she still feels somewhat dizzy but well enough to go home at this time. She requested a refill of meclizine and Zofran while she was in town helping her [id number] who is under hospice care. This was sent to pharmacy of choice Discharge Plan Departure Patient Disposition: Home Clinical Impression: Vertigo Instructions: DI for Vertigo Activity Restrictions/Additional Instructions: Meclizine and Zofran has been sent to your pharmacy. I hope you feel better soon Prescriptions: New meclizine 25 mg tablet 25 mg PO TID Qty: 30 0RF ondansetron 4 mg tablet,disintegrating 4 mg PO Q8H PRN (Reason: nausea and vomiting) Qty: 30 0RF No Action levothyroxine [Tirosint] 13 MCG capsule Unknown Qty: 0 lisdexamfetamine [Vyvanse] 10 mg capsule Qty: 0 metoclopramide HCl 10 MG tablet 10 mg PO Q8HP PRNQty: 15 0RF meclizine 25 mg tablet 25 mg PO BID-TID PRN (Reason: dizziness) Qty: 14 0RF ondansetron 4 mg tablet,disintegrating 4 mg PO TID-QID PRN (Reason: nausea and vomiting) Qty: 10 0RF Referrals: Miscellaneous,Doctor, MD [Primary Care Provider] - Stand Alone Forms: Patient Portal/API
[2023-11-04 10:29] LABS: Prothrombin Time 11.1 SECONDS (9.4-12.5)
[2023-11-04 10:32] LABS: PTT Partial Thromboplastin Tim 36 SECONDS (25.1-36.5)
[2023-11-04 10:35] LABS: Alanine Aminotransferase 17 IU/L (<35); Albumin Globulin Ratio 1.4 (1.0-2.8); Alkaline Phosphatase 82 U/L (38-126); Aspartate Aminotransferase 23 IU/L (14-36); BUN Creatinine Ratio 21.9 (6-22); Bilirubin Total 0.4 mg/dL (0.2-1.3); Blood Urea Nitrogen 16 mg/dL (7-17); Calcium 9.2 mg/dL (8.4-10.2); Carbon Dioxide 27 mmol/L (22-32); Chloride 109 mmol/L (98-107); Creatine Kinase 74 U/L (30-135); Estimated Glomerular Filt Rate > 60 mL/min (>60); Globulin 2.8 g/dL (1.7-4.1); Glucose 99 mg/dL (80-110); HEMOLYSIS < 15 (0-50); Lipase 61 U/L (23-300); Magnesium 2.4 mg/dL (1.6-2.3); Sodium 139 mmol/L (137-145); Total Protein 6.8 g/dL (6.3-8.2)
[2023-11-04] MEDS: diazePAM 10 MG/2 ML SYRINGE 2 MG IV (10:36)
[2023-11-04 10:46] LABS: Troponin I < 0.012 ng/mL (0.01-0.034)
[2023-11-04] MEDS: SCOPOLAMINE 1 PATCH TOP (12:09)
[2023-11-04] MEDS: diphenhydrAMINE 50 MG/ML VIAL IV (12:32)
[2023-11-04] MEDS: MECLIZINE HCL 12.5 MG TABLET 50 MG PO (12:55)
== END 2023-11-04 14:08 | disposition home or self-care (01) ==
PROVIDERS: Emergency Provider Emergency Medicine
DX: R42 Dizziness and giddiness (principal); R07.9 Chest pain, unspecified
CPT/HCPCS: 36415; 71045; 80053; 82550; 83690; 83735; 84484; 85025; 85610; 85730; 93005; 93010; 96361; 96374; 96375; 99284; J1200; J2405; J3360

== ENCOUNTER → 2024-01-25 08:05 | Outpatient (CLI) | payer OTHER, SELFPAY ==
[2024-01-25 08:50] LABS: Influenza A - CEPHEID Flu A NEGATIVE (NEGATIVE); Influenza B - CEPHEID Flu B NEGATIVE (NEGATIVE); Respiratory Syncytial Virus Negative (Negative)
[2024-01-25 08:51] LABS: COVID-19 CEPHEID 4-PLEX PCR Negative (Negative)
== END ==
PROVIDERS: Visit Provider Nurse Practitioner Family
DX: R05.1 Acute cough (principal)
CPT/HCPCS: 0241U; 87070